=== PATIENT | male | born 1980 | race Caucasian/White ===

== ENCOUNTER 2021-11-16 16:53 | Emergency (ER) | payer OTHER ==
[2021-11-16] MEDS ORDERED: AUGMENTIN 875-1 EACH PO (17:46)
== END 2021-11-16 18:00 | disposition home or self-care (01) ==
LOC: FER 16:53
DX: S61.452A Open bite of left hand, initial encounter (principal); Z23 Encounter for immunization; W54.0XXA Bitten by dog, initial encounter; Y92.009 Unspecified place in unspecified non-institutional (private) residence as the place of occurrence of the external cause
CPT/HCPCS: 90471; 90715; 99283